=== PATIENT | female | born 1935 | race Two or more races ===

== ENCOUNTER 2025-01-14 14:42 | Observation (INO) | payer OTHER, MEDICAID, SELFPAY ==
[2025-01-14] VITALS (8 sets, daily range): BP systolic 128–174; BP diastolic 55–76; PULSE 65–88; RESP 17–25; TEMP 36.6–37.1; O2SAT 97–100; BMI 17.9
--- NOTE | 2025-01-14 15:02 | PD.EDRME ---
Rapid Medical Screening Exam RME Arrival date/time: 01/14/25 14:42 89-year-old female presents to the emergency department today with daughter who reports patient had outpatient labs yesterday reports that labs were abnormal and was told to come to the ER for further evaluation Chief Complaint: Weakness Vital signs: Vital Signs Temperature 98.7 F 01/14/25 15:01 Pulse Rate 76 01/14/25 15:01 Respiratory Rate 18 01/14/25 15:01 Blood Pressure 158/55 H 01/14/25 15:01 Pulse Oximetry (%) 98 01/14/25 15:01 Oxygen Delivery Method Room Air 01/14/25 15:01
[2025-01-14 15:45] LABS: Basophils # (Auto) 0.0 Thou/mm3 (0.0-0.2); Basophils % (Auto) 0 % (0-2.5); Eosinophils # (Auto) 0.1 Thou/mm3 (0.0-0.5); Eosinophils % (Auto) 1 % (0-10); Hematocrit 30.6 % (36.0-46.0); Hemoglobin 9.9 g/dL (12.0-16.0); Immature Granulocytes Auto 0.04 Thou/mm3 (0.00-0.00); Lymphocytes # (Auto) 1.7 Thou/mm3 (1.0-4.8); Lymphocytes % (Auto) 18 % (10-50); Mean Corpuscular HGB Conc 32.4 g/dl (31.0-37.0); Mean Corpuscular Hemoglobin 26.5 pg (25.0-35.0); Mean Corpuscular Volume 82 fL (80-100); Monocytes # (Auto) 0.5 Thou/mm3 (0.0-0.8); Monocytes % (Auto) 5 % (0-12); Neutrophils # (Auto) 7.0 Thou/mm3 (1.8-7.7); Neutrophils % (Auto) 76 % (37-80); Nucleated Red Blood Cell # 0.00 Thou/mm3 (0.00-0.00); Nucleated Red Blood Cell % 0 /100 WBC (0); Platelet Count 247 Thou/mm3 (140-440); RDW Standard Deviation 40.1 fL (36.4-46.3); Red Blood Count 3.74 Miln/mm3 (4.00-5.20); White Blood Count 9.3 Thou/mm3 (3.6-11.0)
[2025-01-14 16:16] LABS: Alanine Aminotransferase 13 U/L (10-49); Albumin, Serum 4.0 gm/dL (3.4-4.8); Albumin/Globulin Ratio 1.9 (1.2-2.2); Alkaline Phosphatase 77 U/L (46-116); Anion Gap 14 (7-16); Aspartate Amino Transferase 21 U/L (0-34); BUN/Creatinine Ratio 11 Ratio (12-20); Bilirubin,Total 0.3 mg/dL (0.3-1.2); Blood Urea Nitrogen 9 mg/dL (9-23); Carbon Dioxide 27.0 mMol/L (20.0-31.0); Chloride 98 mMol/L (98-107); Creatinine (Component) 0.8 mg/dL (0.6-1.3); Estimated Creatinine Clearance 35.6 mL/min (>60); Globulin 2.1 gm/dL (2.3-3.5); Glucose 137 mg/dL (74-106); Osmolality,Calculated 278 (275-295); Potassium 3.0 mMol/L (3.4-5.1); Sodium 139 mMol/L (136-145); Total Protein 6.1 gm/dL (5.7-8.2); eGFR > 60 See Note
[2025-01-14 16:19] LABS: Calcium 6.7 mg/dL (8.3-10.6)
[2025-01-14 16:20] LABS: Calcium (Corrected) 6.7 mg/dL (8.5-10.1); Magnesium 0.6 mg/dL (1.6-2.6)
[2025-01-14 17:19] LABS: Free T4 (Free Thyroxine) 1.21 ng/dL (0.89-1.76); Thyroid Stimulating Hormone 2.27 uIU/mL (0.55-4.78)
[2025-01-14 19:55] LABS: Collection Type, Urine Clean Catch
[2025-01-14 20:14] LABS: Bacteria,Urine Rare; Bilirubin,Urine Negative (Negative); Blood,Urine Negative (Negative); Clarity,Urine Clear (Clear/Hazy); Color,Urine Lt-Yellow (Lt Yel-Yel); Culture Indicated,Urine Yes; Glucose, Urine Negative (Negative); Ketones,Urine Negative (Negative); Leukocyte Esterase,Urine Positive (Negative); Nitrite,Urine Negative (Negative); PH,Urine 6.5 (5.0-7.0); Protein,Urine Negative (Neg - Trace); RBC,Urine 1 /hpf (0-3); Specific Gravity,Urine 1.006 (1.001-1.035); Squamous Epithelial Cell,Urine 1 /hpf (0-5); Urobilinogen,Urine Negative mg/dL (0.0-1.0); WBC,Urine 15 /hpf (0-5)
--- NOTE | 2025-01-14 20:38 | EKG_ITS ---
[facility] Test Date: 2025-01-14 Pat Name: ERUM MCNALLY Department: Room: - Gender: Female Ivf Embryologist: : 1935 Requested By: Jaime Marin Order Number: [id number] Reading MD: Jaime Marin Measurements Intervals [place] Rate: 77 P: 20 MD: 150 QRS: 74 QRSD: 149 T: 3 QT: 449 QTc: 509 Interpretive Statements SINUS RHYTHM INDETERMINATE AXIS RIGHT BUNDLE BRANCH BLOCK [120+ ms QRS DURATION, UPRIGHT V1, 40+ ms S IN I/aVL/V4/V5/V6] Compared to ECG 05/28/2023 20:03:31 No significant changes /store/S0/[id number]/ecg/[id number].pdf
--- NOTE | 2025-01-14 20:47 | PD.EDWEAK ---
ED Weakness RME/HPI General Chief complaint: Weakness Stated complaint: WEAKNESS, LOW APPETITE, LOW k AND CALCIUM Time Seen by Provider: 01/14/25 20:37 Arrival date/time: 01/14/25 14:42 RME / HPI RME / HPI Narrative: 89-year-old female with significant history of diabetes mellitus presents to the emergency department today with daughter due to abnormal lab results. Patient is having worsening generalized body weakness, for the last 1 to 2 months, getting worse for the last 1-1/2 weeks. Went to PCP yesterday for routine blood draw. And was advised to come to the emergency room due to abnormal lab results. Denies any chest pain denies any vomiting denies any diarrhea. Denies any complaints no medication was taken prior to ER visit. Related Data Home Medications ?Medication ?Instructions ?Recorded ?Confirmed metformin 500 mg tablet 500 mg PO BID 12/18/18 01/15/25 meloxicam 7.5 mg tablet 7.5 mg PO QDAY 01/16/21 01/15/25 ascorbic acid (vitamin C) 500 mg 500 mg PO QDAY 07/30/23 01/15/25 tablet (Vitamin C) atorvastatin 20 mg tablet 20 mg PO QDAY 07/30/23 01/15/25 cholecalciferol (vitamin D3) 125 125 mcg PO QDAY 07/30/23 01/15/25 mcg (5,000 unit) tablet (Vitamin D3) losartan 50 mg-hydrochlorothiazide 1 tab PO QDAY 07/30/23 01/15/25 12.5 mg tablet cdfpsejgihtt-pnlwsgcb-qsmyfx tablet 1 tab PO QDAY 07/30/23 01/15/25 omeprazole 40 mg capsule,delayed 40 mg PO QDAY 07/30/23 01/15/25 release oxybutynin chloride 5 mg tablet 5 mg PO QDAY 07/30/23 01/15/25 potassium chloride 10 mEq 10 meq PO BID 07/30/23 01/15/25 capsule,extended release Previous Rx's ?Medication ?Instructions ?Recorded clopidogrel 75 mg tablet (Plavix) 75 mg PO QDAY #14 tabs 06/28/20 meloxicam 7.5 mg tablet 7.5 mg PO QDAY #4 tabs 12/15/23 Allergies Allergy/AdvReac Type Severity Reaction Status Date / Time Penicillins Allergy Intermediate Rash Verified 01/14/25 14:43 Review of Systems Review of Systems Narrative Review of Systems: Review of system reviewed and within normal limits except mentioned in HPI ED Exam Narrative Physical exam: VITAL SIGNS: Reviewed. GENERAL APPEARANCE: Alert and interactive, follows commands, no acute distress, HEAD AND FACE: Non-traumatic. ENT: PERRL, pink conjunctivitis, eyelid no trauma, Mucous membrane moist. NECK: Supple, nontender, no nuchal rigidity. CHEST: No tenderness, no crepitus, no paradoxical movement, no retractions. LUNGS: Clear, well ventilated, symmetric, no rales, no wheezing, no ronchi, no stridor, good breath sounds bilaterally. HEART: Regular rate, regular rhythm, no murmur, no gallops. ABDOMEN: Soft, positive bowel sounds, nondistended, no guarding, nontender, no rebound, no masses, RECTAL: Deferred. GENITAL: Deferred. NEUROLOGICAL: Gross motor function intact sensory function intact, Appropriate for age. MUSCULOSKELETAL: low back nontender, full range of motion. EXTREMITIES: Nontender, full range of motion. SKIN: Color pink, dry, no rash, no lacerations, no abrasions, no contusions. LYMPHATICS: Deferred. Course Quality Measures none Orders Category Date Time Status COVID-19 Screening Questionnaire NOW Care 01/14/25 23:20 Active Decision to Admit X1 Care 01/14/25 23:20 Completed EKG (ED ONLY) *Do not use* NOW Care 01/14/25 20:38 Completed EKG (ED Only) Stat Exams 01/14/25 20:38 Draft CBC Stat Lab 01/14/25 15:33 Completed Comprehensive Metabolic Panel Stat Lab 01/14/25 15:33 Completed Free T4 (Free Thyroxine) Stat Lab 01/14/25 15:33 Completed Mag [Magnesium] Stat Lab 01/14/25 15:33 Completed Thyroid Stimulating Hormone Stat Lab 01/14/25 15:33 Completed UA, C/S IF [Urinalysis, C/S if Indicated] Stat Lab 01/14/25 19:40 Completed Urine Culture Stat Lab 01/14/25 19:40 Received Calcium Gluconate 10% Inj Med 01/14/25 20:43 Discontinued 1 gm IV X1 ONE Magnesium Sulfate 2 GM Ivpb [Magnesium Sulfate Ivpb] Med 01/14/25 20:54 Discontinued 2 gm in 50 ml IV X1 Magnesium Sulfate 4 GM Ivpb [Magnesium Sulfate Ivpb] Med 01/14/25 20:44 Discontinued 4 gm in 50 ml IV X1 Potassium Chloride [K-Dur] Med 01/14/25 20:43 Discontinued 40 meq PO X1 ONE Vital Signs Vital signs: Vital Signs Temperature 98.7 F 01/14/25 15:01 Pulse Rate 76 01/14/25 15:01 Respiratory Rate 18 01/14/25 15:01 Blood Pressure 158/55 H 01/14/25 15:01 Pulse Oximetry (%) 98 01/14/25 15:01 Oxygen Delivery Method Room Air 01/14/25 15:01 Weakness MDM Narrative MDM Narrative:: 89-year-old female with significant history of diabetes mellitus presents to the emergency department today with daughter due to abnormal lab results. Patient is having worsening generalized body weakness, for the last 1 to 2 months, getting worse for the last 1-1/2 weeks. Went to PCP yesterday for routine blood draw. And was advised to come to the emergency room due to abnormal lab results. Denies any chest pain denies any vomiting denies any diarrhea. Denies any complaints no medication was taken prior to ER visit. Patient's magnesium was noted to be 0.6, potassium of 3.0, calcium is also 6.6. Patient received replacement for magnesium and potassium and calcium. Spoke with hospitalist, who admitted the patient. Patient data External records reviewed:: None Clinical information provided by:: patient Social determinants that could affect healthcare access:: none Patient has the following chronic illnesses:: Diabetes mellitus How is presenting disease/condition affected by chronic disease/condition?: exacerbated by Evaluation data The following diagnostics were reviewed and interpreted by me:: lab results, radiology exam(s) and EKG tracing(s) Lab and/or radiology exams considered but not ordered:: None Interpretation Summary: EKG as interpreted by me showed normal sinus rhythm, ventricular rate of 76 bpm, no ST segment ovation depression noted. Medications / Prescriptions Medications or Prescriptions considered but not ordered:: None Medication administrations:: Medication Administration History Ascorbic Acid (Ascorbic Acid 250 Mg Tablet) 500 mg PO QDAY [facility] Stop: 02/14/25 08:59 Last Admin: 01/15/25 09:36 Dose: 500 mg Documented By: MA Atorvastatin Calcium (Atorvastatin Calcium 20 Mg Tablet) 40 mg PO HS [facility] Stop: 02/14/25 20:59 Last Admin: 01/15/25 20:46 Dose: 40 mg Documented By: WILLIAM Clopidogrel Bisulfate (Clopidogrel Bisulfate 75 Mg Tablet) 75 mg PO QDAY JL Stop: 02/14/25 08:59 Last Admin: 01/15/25 09:37 Dose: 75 mg Documented By: MA Diphenhydramine HCl (Diphenhydramine Inj 50 Mg/Ml Vial) 25 mg IVP Q4HR PRN PRN Reason: Itching and nausea Stop: 02/13/25 23:46 Heparin Sodium (Porcine) (Heparin Sod Inj 5000 Unit/Ml Vial) 5,000 unit SC BID JL Stop: 01/29/25 08:59 Last Admin: 01/15/25 20:46 Dose: 5,000 unit Documented By: WILLIAM Co-signed By: TIFFANY Admin: 01/15/25 09:37 Dose: 5,000 unit Documented By: MA Co-signed By: PAOLO Hydrochlorothiazide (Hydrochlorothiazide 12.5 Mg Capsule) 12.5 mg PO QDAY JL Stop: 02/14/25 08:59 Last Admin: 01/15/25 09:36 Dose: 12.5 mg Documented By: MA Losartan Potassium (Losartan Potassium 25 Mg Tablet) 50 mg PO QDAY JL Stop: 02/14/25 08:59 Last Admin: 01/15/25 09:37 Dose: 50 mg Documented By: MA Oxybutynin Chloride (Oxybutynin Chlor 5 Mg Tablet) 5 mg PO QDAY JL Stop: 02/14/25 08:59 Last Admin: 01/15/25 09:36 Dose: 5 mg Documented By: MA Pantoprazole Sodium (Pantoprazole 40 Mg Tablet) 40 mg PO QDAY JL Stop: 02/14/25 08:59 Last Admin: 01/15/25 09:37 Dose: 40 mg Documented By: MA Discontinued Medications Atorvastatin Calcium (Atorvastatin Calcium 20 Mg Tablet) 40 mg PO HS JL Stop: 02/14/25 20:59 Atorvastatin Calcium (Atorvastatin Calcium 20 Mg Tablet) 20 mg PO HS JL Stop: 02/14/25 20:59 Calcium Gluconate (Calcium Gluconate 10% Inj 1 Gm/10 Ml Vial) 1 gm IV X1 ONE Stop: 01/14/25 20:44 Last Admin: 01/14/25 21:05 Dose: 1 gm Documented By: JORGE Calcium Gluconate (Calcium Gluconate 10% Inj 1 Gm/10 Ml Vial) 1 gm IV X1 ONE Stop: 01/15/25 02:31 Last Admin: 01/15/25 04:31 Dose: 1 gm Documented By: JOHNNY Clopidogrel Bisulfate (Clopidogrel Bisulfate 75 Mg Tablet) 75 mg PO QDAY JL Stop: 02/14/25 08:59 Dextrose (Dextrose 50%-Water Inj 50 Ml Syringe) 25 ml IV Q15MIN PRN PRN Reason: BG 50-70 responsive npo pt Stop: 02/13/25 23:51 Dextrose (Dextrose 50%-Water Inj 50 Ml Syringe) 50 ml IV Q15MIN PRN PRN Reason: BG <50 OR BG <70 & pt unresponsive Stop: 02/13/25 23:51 Glucagon (Glucagon Inj 1 Mg Vial) 1 mg IM Q15MIN PRN PRN Reason: BG <70, and no IV access Magnesium Sulfate (Magnesium Sulfate Ivpb) 4 gm in 50 mls @ 12.5 mls/hr IV X1 ONE Stop: 01/15/25 00:43 Last Infusion: 01/15/25 01:05 Dose: Infused Documented By: Admin: 01/14/25 21:05 Dose: 12.5 mls/hr Documented By: JORGE Magnesium Sulfate (Magnesium Sulfate Ivpb) 2 gm in 50 mls @ 25 mls/hr IV X1 ONE Stop: 01/14/25 22:53 Last Infusion: 01/15/25 03:11 Dose: Infused Documented By: Admin: 01/15/25 01:14 Dose: 25 mls/hr Documented By: JORGE Dextrose/Sodium Chloride (D5-Ns) 500 mls @ 75 mls/hr IV .[id number] JL Stop: 01/15/25 06:24 Dextrose/Sodium Chloride (D5-Ns) 1,000 mls @ 75 mls/hr IV .[id number] JL Stop: 01/15/25 17:36 Last Admin: 01/15/25 20:58 Dose: Not Given Documented By: WILLIAM Non-Admin Reason: Wrong Time Sodium Chloride (Ns) 250 mls @ 999 mls/hr IV .Q16M ONE Stop: 01/15/25 10:38 Last Admin: 01/15/25 12:51 Dose: 999 mls/hr Documented By: CHAOV Insulin Human Lispro (Insulin Lispro (Admelog) 1 Unit/0.01 Ml Unit) 0 unit SC ACHS JL; Protocol Stop: 02/14/25 07:29 Last Admin: 01/15/25 07:27 Dose: 1 unit Documented By: MA Co-signed By: PAOLO Non-Formulary Medication (Losartan-Hydrochlorothiazide) 1 tab PO QDAY JL Stop: 02/14/25 08:59 Pantoprazole Sodium (Pantoprazole 40 Mg Tablet) 40 mg PO BID JL; Protocol Stop: 02/14/25 08:59 Potassium Chloride (Potassium Chloride 20 Meq Tabcr) 40 meq PO X1 ONE Stop: 01/14/25 20:44 Last Admin: 01/14/25 21:05 Dose: 40 meq Documented By: JORGE Potassium Chloride (Potassium Chloride 20 Meq Tabcr) 40 meq PO X1 ONE Stop: 01/15/25 02:31 Last Admin: 01/15/25 04:31 Dose: 40 meq Documented By: JOHNNY Potassium Chloride (Potassium Chloride 20 Meq Tabcr) 20 meq PO X1 ONE Stop: 01/15/25 08:31 Last Admin: 01/15/25 09:40 Dose: 20 meq Documented By: CHAVO Vitamin D (Cholecalciferol (Vitamin D3) 1,000 Iu Tablet) 5,000 iu PO QDAY [facility] Stop: 02/14/25 08:59 Potassium replacement, magnesium replacement, and calcium replacement Consultations Consultation(s) initiated? (list below): No Diagnosis Weakness Differential Diagnosis: dehydration and other (Hypomagnesemia, hypocalcemia, hypokalemia) Most likely diagnosis given after review of the tests above:: Hypokalemia , hypocalcemia, hypomagnesemia Admission Indicated Admission indicated?: indicated Admission Request Was there a request for admission?: Yes Admission Attestation Admission request attestation: Discussed case with [Dr Elliott ] from Hospitalist service regarding admission. Discussed patients ED course, exam findings, labs, and radiology results. The Hospitalist [agrees to accept the patient for admission. Disposition Plan Disposition Plan: Admit Discharge Plan Plan Patient Disposition: Admit Acute Care w/in Hospital Problem List Clinical Impression: Hypomagnesemia, Weakness generalized
[2025-01-14] MEDS: CALCIUM GLUCONATE 10% INJ 1 GM/10 ML VIAL IV (21:05)
[2025-01-14] MEDS: Magnesium Sulfate 4 GM Ivpb 4 GM/50 ML BAG IV (21:05)
[2025-01-15] VITALS (20 sets, daily range): BP systolic 112–159; BP diastolic 46–99; PULSE 64–79; RESP 17–20; TEMP 36.2–37.2; O2SAT 93–100; BMI 17.9; BMI 19.3
--- NOTE | 2025-01-15 00:14 | PD.RESHP ---
Documentation for date of: 01/15/25 HPI History of Present Illness History of present illness: Patient is a 89-year-old female past medical significant for multiple CVA/TIA, hypertension, diabetes mellitus presented to the [facility] ED on 01/14/2025 with chief complaint of weakness. The patient is accompanied by her daughter, Latonia. The patient was referred by her primary care provider for further evaluation after abnormal lab results were found during a routine checkup. The patient denies any history of thyroid problems, cancer, or trauma. Over the past two weeks, the patient reports feeling more fatigued than usual state of generalized weakness. She also notes tingling and itchiness in both hands. Additionally, she has experienced unintentional weight loss of approximately 34 pounds over the past 2-3 months. The patient describes her diet as generally varied, with no specific food restrictions, but she has had a decreased appetite over the last few months. She denies any difficulty chewing or swallowing. Per the daughter, the patient has become increasingly forgetful, and this may be contributing to her reduced appetite. The daughter mentions a recent episode where the patient was found outside wearing only panties and appeared confused about her surroundings, not recognizing why she was outside. The patient has also reported intermittent headaches generalized weakness that resolved when she eats and rest. The patient denies symptoms such as shortness of breath, chest pain, abdominal pain, diarrhea, constipation, or urinary issues (no frequency or urgency). The patient denies any past history of thyroid problems, cancer, or trauma. ED Course: -Initial vitals were 158/55, pulse 76, respiratory 18, temp 98.7, O2 sat 98% on room -Labs significant for WBC 11.9, hemoglobin 10.6, hematocrit 32.1, potassium 3, calcium 6.7, magnesium 0.6 -Imaging included EKG shows sinus rhythm -In the ED, patient was given Mag 4 mg and 2mg IV x 1, potassium chloride 40 mEq x 1, calcium gluconate 1 mg x 1 -Patient was admitted for electrolyte derangements and weakness evaluation and management Review of Systems Review of systems otherwise negative except what is mentioned above. 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 Uses walker for ambulate Current Medications: Check med Allergies: Penicillin -rash Exam Vital Signs Temp Pulse Resp BP Pulse Ox O2 Del Method 97.8 F 81 19 128/65 97 Room Air 01/14/25 23:07 01/14/25 23:07 01/14/25 23:07 01/14/25 23:07 01/14/25 23:07 01/14/25 23:07 Narrative Exam General: Alert, no acute distress.Conversational and non-toxic appearing. Skin: Warm, dry, intact. No rash or ecchymoses. Head: Normocephalic, atraumatic. Eye: Normal conjunctiva, PERRL. Throat: Oral mucosa moist. No obvious lesions in oropharynx. Cardiovascular: Regular rate and rhythm, no murmur, +S1/S2. Respiratory: Lungs are clear to auscultation, respirations unlabored, no crackles, no wheezing. Gastrointestinal: Soft, nontender, non-distended. No guarding or rebound tenderness. Extremities: No edema, no cyanosis, no clubbing. Neuro: [place] sign negative alert and oriented x3.No focal deficits observed. Conversant, moving all extremities. No overt cerebellar signs/incoordination. Psychiatric: Cooperative, appropriate affect Results: Labs 01/15/25 00:10 01/16/25 05:14 Labs: Short CBC 01/14/25 Range/Units 15:33 WBC 9.3 (3.6-11.0) Thou/mm3 Hgb 9.9 L (12.0-16.0) g/dL Hct 30.6 L (36.0-46.0) % Plt Count 247 (140-440) Thou/mm3 BMP 01/14/25 15:33 Sodium 139 Potassium 3.0 L Chloride 98 Carbon Dioxide 27.0 BUN 9 Creatinine 0.8 Glucose 137 H Calcium 6.7 L* Liver Function 01/14/25 Range/Units 15:33 Total Bilirubin 0.3 (0.3-1.2) mg/dL AST 21 (0-34) U/L ALT 13 (10-49) U/L Alkaline Phosphatase 77 (46-116) U/L Albumin 4.0 (3.4-4.8) gm/dL Urine 01/14/25 Range/Units 19:40 Urine Color Lt-Yellow (Lt Yel-Yel) Urine Clarity Clear (Clear/Hazy) Urine pH 6.5 (5.0-7.0) Ur Specific [place] 1.006 (1.001-1.035) Urine Protein Negative (Neg - Trace) Urine Glucose (UA) Negative (Negative) Quality Measures Quality Measures VTE prophylaxis Advance care planning discussed with:: patient Medications Home Medications and Allergies Home Medications ?Medication ?Instructions ?Recorded ?Confirmed ?Type ascorbic acid (vitamin C) 500 mg 500 mg PO QDAY 07/30/23 01/15/25 History tablet (Vitamin C) atorvastatin 20 mg tablet 20 mg PO QDAY 07/30/23 01/15/25 History cholecalciferol (vitamin D3) 125 125 mcg PO QDAY 07/30/23 01/15/25 History mcg (5,000 unit) tablet (Vitamin D3) losartan 50 mg-hydrochlorothiazide 1 tab PO QDAY 07/30/23 01/15/25 History 12.5 mg tablet tqmhuczpllyc-bbyriysu-latwjq tablet 1 tab PO QDAY 07/30/23 01/15/25 History omeprazole 40 mg capsule,delayed 40 mg PO QDAY 07/30/23 01/15/25 History release oxybutynin chloride 5 mg tablet 5 mg PO QDAY 07/30/23 01/15/25 History Allergies Allergy/AdvReac Type Severity Reaction Status Date / Time Penicillins Allergy Intermediate Rash Verified 01/14/25 14:43 Visit Medications Dextrose (Dextrose 50%-Water Inj 50 Ml Syringe) 25 ml IV Q15MIN PRN PRN Reason: BG 50-70 responsive npo pt Stop: 02/13/25 23:51 Dextrose (Dextrose 50%-Water Inj 50 Ml Syringe) 50 ml IV Q15MIN PRN PRN Reason: BG <50 OR BG <70 & pt unresponsive Stop: 02/13/25 23:51 Diphenhydramine HCl (Diphenhydramine Inj 50 Mg/Ml Vial) 25 mg IVP Q4HR PRN PRN Reason: Itching and nausea Stop: 02/13/25 23:46 Glucagon (Glucagon Inj 1 Mg Vial) 1 mg IM Q15MIN PRN PRN Reason: BG <70, and no IV access Magnesium Sulfate (Magnesium Sulfate Ivpb) 4 gm in 50 mls @ 12.5 mls/hr IV X1 ONE Stop: 01/15/25 00:43 Last Admin: 01/14/25 21:05 Dose: 12.5 mls/hr Dextrose/Sodium Chloride (D5-Ns) 500 mls @ 75 mls/hr IV .Q6H40M [facility] Stop: 01/15/25 06:24 Insulin Human Lispro (Insulin Lispro (Admelog) 1 Unit/0.01 Ml Unit) 0 unit SC [facility]; Protocol Stop: 02/14/25 07:29 Discontinued Medications Calcium Gluconate (Calcium Gluconate 10% Inj 1 Gm/10 Ml Vial) 1 gm IV X1 ONE Stop: 01/14/25 20:44 Last Admin: 01/14/25 21:05 Dose: 1 gm Magnesium Sulfate (Magnesium Sulfate Ivpb) 2 gm in 50 mls @ 25 mls/hr IV X1 ONE Stop: 01/14/25 22:53 Potassium Chloride (Potassium Chloride 20 Meq Tabcr) 40 meq PO X1 ONE Stop: 01/14/25 20:44 Last Admin: 01/14/25 21:05 Dose: 40 meq Assessment & Plan Plan Patient is a 89-year-old female past medical significant for multiple CVA/TIA, hypertension, diabetes mellitus presented to the [facility] ED on 01/14/2025 with chief complaint of weakness. Admitted for evaluation and management on electrolyte derangements. #QTc prolongation #Electrolyte abnormalities #Hypocalcemia #Hypomagnesia #Hypokalemia Patient presented with symptoms generalized weakness, fatigue bilateral and tingling and itching. Lab was significant for Ca 6.7, Mg 0.6, K 3.0 each electrolyte were repleted except for hypocalcemia DDx hypocalcemia: Primary hypoparathyroidism most likely vs vitamin D deficient vs CKD vs malnutrition/poor dietary. Patient for hypoparathyroidism as patient has previous history of magnesium deficiency which can impair PTH secretion, also patient has low calcium PTH was 84.9, which is low, per physiology low calcium supposed to induce more PTH secretion. Less likely due to CKD as patient kidney function and phosphorus is normal. Unsure about vitamin D level as patient takes supplement -Replete electrolytes as needed -Vitamin B1 ordered, pending -Vitamin D25 hydroxy ordered, pending -Consider further workup for hypocalcemia -Repeat ECG after electrolyte correction #Prior CVA/TIA Patient reported prior history of 3 CVAs, with no residual deficit - Resume atorvastatin 40 mg daily - Resume Plavix 75 mg daily #Ayc-zqhdtwu-shrylfnli type 2 diabetes mellitus Admission glucose 128, last A1c was 7.6 -Started insulin sliding -Glucose check ACHS #Hypertension -Continue home medications after medication reconciliation #Chronic normocytic anemia Hgb around her baseline. Continue to monitor. F/U outpatient with pcp. #Pyuria No symptoms of UTI Treat if symptoms develop Hospital management: Lines: peripheral IV Diet: Diabetic carbohydrate consistent DVT: Heparin SC [facility] evaluation CODE STATUS: Full code Patient seen and assessed under supervision of attending physician Dr.Alhalaibeh Juana Hermosillo MD PGY-1, Internal Medicine Please note: this document was transcribed using voice recognition technology; minor inaccuracies may be present. Attending Provider Attestation/Addendum After examination of the patient and review of the clinical data I feel that this patient needs admission to the hospital for further treatment/evaluation. Plan of care discussed with patient and is in agreement. I Rosa Jarrett MD, attest that I was physically present for valdivia portions of evaluation, and examined patient, labs and imagings and plan of care were discussed with IM residents team, and I agree with the findings and plans documented above.
[2025-01-15 00:28] LABS: Basophils # (Auto) 0.0 Thou/mm3 (0.0-0.2); Basophils % (Auto) 0 % (0-2.5); Eosinophils # (Auto) 0.0 Thou/mm3 (0.0-0.5); Eosinophils % (Auto) 0 % (0-10); Hematocrit 32.1 % (36.0-46.0); Hemoglobin 10.6 g/dL (12.0-16.0); Immature Granulocytes Auto 0.04 Thou/mm3 (0.00-0.00); Lymphocytes # (Auto) 1.2 Thou/mm3 (1.0-4.8); Lymphocytes % (Auto) 11 % (10-50); Mean Corpuscular HGB Conc 33.0 g/dl (31.0-37.0); Mean Corpuscular Hemoglobin 27.0 pg (25.0-35.0); Mean Corpuscular Volume 82 fL (80-100); Monocytes # (Auto) 0.5 Thou/mm3 (0.0-0.8); Monocytes % (Auto) 5 % (0-12); Neutrophils # (Auto) 9.3 Thou/mm3 (1.8-7.7); Neutrophils % (Auto) 84 % (37-80); Nucleated Red Blood Cell # 0.00 Thou/mm3 (0.00-0.00); Nucleated Red Blood Cell % 0 /100 WBC (0); Platelet Count 263 Thou/mm3 (140-440); RDW Standard Deviation 39.6 fL (36.4-46.3); Red Blood Count 3.93 Miln/mm3 (4.00-5.20); White Blood Count 11.1 Thou/mm3 (3.6-11.0)
[2025-01-15 00:42] LABS: Parathyroid Hormone Intact 84.9 pg/ml (18.5-88.0)
[2025-01-15] MEDS: Magnesium Sulfate 2 GM Ivpb 2 GM/50 ML BAG IV (01:14)
[2025-01-15 01:17] LABS: Folate 9.06 ng/mL (>5.38)
[2025-01-15 02:22] LABS: Albumin, Serum 4.2 gm/dL (3.4-4.8); Anion Gap 17 (7-16); BUN/Creatinine Ratio 14 Ratio (12-20); Blood Urea Nitrogen 10 mg/dL (9-23); Calcium 7.8 mg/dL (8.3-10.6); Calcium (Corrected) 7.8 mg/dL (8.5-10.1); Carbon Dioxide 26.3 mMol/L (20.0-31.0); Chloride 100 mMol/L (98-107); Creatinine (Component) 0.7 mg/dL (0.6-1.3); Estimated Creatinine Clearance 40.7 mL/min (>60); Glucose 128 mg/dL (74-106); Magnesium 2.0 mg/dL (1.6-2.6); Osmolality,Calculated 285 (275-295); Phosphorous 3.9 mg/dL (2.4-5.1); Potassium 3.0 mMol/L (3.4-5.1); Sodium 143 mMol/L (136-145); eGFR > 60 See Note
[2025-01-15] MEDS: CALCIUM GLUCONATE 10% INJ 1 GM/10 ML VIAL IV (04:31)
[2025-01-15 06:02] LABS: Lactate (Lactic Acid) 1.4 mMol/L (0.4-2.0)
[2025-01-15 06:35] LABS: Vitamin D 25 Hydroxy Total 50.0 ng/mL (7.3-40.2)
[2025-01-15 06:47] LABS: Alanine Aminotransferase 13 U/L (10-49); Albumin, Serum 4.5 gm/dL (3.4-4.8); Albumin/Globulin Ratio 1.9 (1.2-2.2); Alkaline Phosphatase 90 U/L (46-116); Anion Gap 15 (7-16); Aspartate Amino Transferase 20 U/L (0-34); BUN/Creatinine Ratio 8 Ratio (12-20); Bilirubin,Total 0.4 mg/dL (0.3-1.2); Blood Urea Nitrogen 6 mg/dL (9-23); Calcium 8.9 mg/dL (8.3-10.6); Calcium (Corrected) 8.9 mg/dL (8.5-10.1); Carbon Dioxide 27.5 mMol/L (20.0-31.0); Chloride 103 mMol/L (98-107); Creatinine (Component) 0.8 mg/dL (0.6-1.3); Estimated Creatinine Clearance 35.6 mL/min (>60); Globulin 2.4 gm/dL (2.3-3.5); Glucose 163 mg/dL (74-106); Magnesium 3.1 mg/dL (1.6-2.6); Osmolality,Calculated 290 (275-295); Phosphorous 3.5 mg/dL (2.4-5.1); Potassium 3.5 mMol/L (3.4-5.1); Sodium 145 mMol/L (136-145); Total Protein 6.9 gm/dL (5.7-8.2); eGFR > 60 See Note
[2025-01-15] MEDS: INSULIN LISPRO (AdmeLOG) 1 UNIT/0.01 ML UNIT SC (07:27)
--- NOTE | 2025-01-15 09:13 | PC.SS ---
Hermelinda Rodriguez is a 89 year old female admitted for Weakness. SS made contact with the patient in the attempt to complete initial. Role and reason for the contact was explained to the patient. Demographic information was verified with the patient. Patient was able to verify her home address, phone number and contact information for her , Montrell Rodriguez. Patient reports that she lives at home with her who she reports as her primary care person [phone]. Patient denies having an advance directive in place. SS inquired about the patient being able to perform her own ADL?s at home. Patient reports that she is independent with her ADL?s. Patient reports she does utilize a Rollator walker to assist with ambulation. At this time patient reports that she has no other needs. Patient reports that her will be able to transport her home upon discharge. PCP: Raimundo Champion Discharge plan: Home Next of kin: , Montrell Rodriguez
[2025-01-15] MEDS: OXYBUTYNIN CHLOR 5 MG TABLET PO (09:36)
[2025-01-15] MEDS: ASCORBIC ACID 250 MG TABLET 500 MG PO (09:36)
[2025-01-15] MEDS: PANTOPRAZOLE 40 MG TABLET PO (09:37)
[2025-01-15] MEDS: HEPARIN SOD INJ 5000 UNIT/ML VIAL SC ×2 (09:37→20:46)
[2025-01-15] MEDS: CLOPIDOGREL BISULFATE 75 MG TABLET PO (09:37)
[2025-01-15] MEDS: LOSARTAN POTASSIUM 25 MG TABLET 50 MG PO (09:37)
[2025-01-15 09:38] LABS: Glucose Estimated Average 143 mg/dL (80-131); Hemoglobin A1C 6.6 % Hgb (4.8-6.0)
[2025-01-15 09:59] LABS: Cardiac Risk Estimate 2.4 RATIO (3.7-5.6); Cholesterol 94 mg/dL (132-200); HDL Cholesterol 40 mg/dL (40-60); LDL Cholesterol,Calculated 38 mg/dL (0-130); Triglycerides 80 mg/dL (30-150)
--- NOTE | 2025-01-15 10:21 | XR_ITS ---
Examination: CT chest with intravenous contrast CT abdomen with intravenous contrast CT pelvis with intravenous contrast CT chest without intravenous contrast CT abdomen without intravenous contrast CT pelvis without intravenous contrast 2-D coronal and sagittal reconstructions Time of exam: January 15, 2025, 1508 hours, comparison April 05, 2023 INDICATIONS: 20 pound weight loss over the last 4 months CTDI: vol (mGy) : 10 DLP: (mGycm): 645 Technique: Multiple axial images of the chest, abdomen and pelvis with intravenous contrast, 3.0 mm slice thickness. Images obtained post intravenous injection Isovue 370 60 cc. 2-D sagittal and coronal reconstructions. Low dose protocols were performed. One or more of the following dose reduction techniques were used; automated exposure control, adjustment of the mA and/or KV according to patient size, use of iterative reconstruction technique. Findings: 10 mm right thyroid nodule 12 mm calcified left thyroid nodule No thoracic aortic aneurysm dilatation or dissection No pulmonary artery emboli on this non-CTA study Mild enlargement cardiac contour No paratracheal tracheobronchial or bronchopulmonary adenopathy. 4 mm pulmonary nodule right upper lobe image 168 4 mm pulmonary nodule left upper lobe image 112 4 mm pulmonary nodule right lower lobe image 113 4 mm pulmonary nodule right lower lobe image 163 4 mm pulmonary nodule right lower lobe image 164 4 mm pulmonary nodule left lower lobe image 290 No pneumonia or pulmonary edema Minimal pericardial effusion No focal liver or splenic lesions Cholelithiasis No pancreatic or adrenal mass 2 mm nonobstructing left renal calculus 2 mm nonobstructing right renal calculus Renal arterial calcifications Aortic calcification no aneurysmal dilatation Colonic diverticulosis no diverticulitis No bladder mass or bladder calculi No pericecal inflammatory change No pelvic mass Prominent osteopenia with moderate to advanced diffuse lumbar degenerative disc disease Moderate narrowing hip joints IMPRESSION: Thyroid nodules as above, recommend dedicated thyroid sonography follow-up Additional subcentimeter bilateral pulmonary nodules compared with April 05, 2023, suggest continued 6 month follow-up CT chest without contrast to exclude early pulmonary nodular metastatic disease Cholelithiasis Bilateral nonobstructing renal calculi No hydronephrosis or ureteral calculi No CT findings of appendicitis or bowel obstruction
--- NOTE | 2025-01-15 10:37 | ESPR_ITS ---
Documentation for date of: 01/15/25 Subjective Subjective Interval history: Patient was admitted overnight. Patient reports decreased appetite over the past couple weeks as well as 20 pound weight loss over 3 to 4 months. Endorses reduced appetite due to nausea however endorses good appetite today. Patient denies any personal or family history of cancer, however of note upon chart review patient was noted to have pulmonary nodules on imaging, never followed up. Will repeat imaging today. Ordered FOBT. Consulted dietitian and physical therapy due to malnutrition and generalized weakness. Will continue all other home medications. Exam Vital Signs Temp Pulse Resp BP Pulse Ox O2 Del Method 97.2 F 73 17 139/66 H 96 Room Air 01/15/25 07:31 01/15/25 09:37 01/15/25 07:31 01/15/25 09:37 01/15/25 07:31 01/15/25 07:31 Narrative Exam Physical Exam General: Awake and in no acute distress. Conversational and non-toxic appearing. Elderly cachetic Montenegrin-speaking woman. HEENT: Normocephalic, atraumatic, mucous membranes moist. Heart: Regular rate and rhythm, normal S1 and S2, no murmurs. Lungs: Clear to auscultation with no wheezing or crackles. Abdomen: Soft, nondistended, nontender, positive bowel sounds. No guarding or rebound tenderness. Neurologic: Alert and oriented x3, no gross neurological deficit, and patient able to move all 4 extremities. 5/5 strength in all extremities. Sensation intact. Extremities: No edema. Skin: No rash or ecchymoses. Objective Labs 01/15/25 00:10 01/15/25 05:51 Labs: Laboratory Results - last 24 hr 01/14/25 01/14/25 01/15/25 15:33 19:40 00:10 WBC 9.3 11.1 H RBC 3.74 L 3.93 L Hgb 9.9 L 10.6 L Hct 30.6 L 32.1 L MCV 82 82 MCH 26.5 27.0 MCHC 32.4 33.0 RDW Std Deviation 40.1 39.6 Plt Count 247 263 Neut % (Auto) 76 84 H Lymph % (Auto) 18 11 [place] % (Auto) 5 5 Eos % (Auto) 1 0 Baso % (Auto) 0 0 Neut # (Auto) 7.0 9.3 H Lymph # (Auto) 1.7 1.2 [place] # (Auto) 0.5 0.5 Eos # (Auto) 0.1 0.0 Baso # (Auto) 0.0 0.0 Immature Gran # (Auto) 0.04 H 0.04 H Absolute Nucleated RBC 0.00 0.00 Immature Gran % 0 0 Nucleated RBC % 0 0 Sodium 139 143 Potassium 3.0 L 3.0 L Chloride 98 100 Carbon Dioxide 27.0 26.3 Anion Gap 14 17 H BUN 9 10 Creatinine 0.8 0.7 Estim Creat Clear Calc 35.6 L 40.7 L eGFR > 60 > 60 BUN/Creatinine Ratio 11 L 14 Glucose [address] Glu mg/dL Hemoglobin A1c Calculated Osmolality 278 285 Lactic Acid Calcium 6.7 L* 7.8 L Corrected Calcium 6.7 L* 7.8 L Phosphorus 3.9 Magnesium 0.6 L* 2.0 Total Bilirubin 0.3 AST 21 ALT 13 Alkaline Phosphatase 77 Total Protein 6.1 Albumin 4.0 4.2 Globulin 2.1 L Albumin/Globulin Ratio 1.9 Triglycerides Cholesterol LDL Cholesterol, Calc HDL Cholesterol Cholesterol/HDL Ratio 25-OH Vitamin D Total Folate 9.06 TSH 2.27 Free T4 1.21 PTH Intact 84.9 Ur Collection Type Clean Catch Urine Color Lt-Yellow Urine Clarity Clear Urine pH 6.5 Ur Specific [place] 1.006 Urine Protein Negative Urine Glucose (UA) Negative Urine Ketones Negative Urine Blood Negative Urine Nitrite Negative Urine Bilirubin Negative Urine Urobilinogen (Auto) Negative Ur Leukocyte Esterase Positive Urine RBC 1 Urine WBC 15 H Ur Squamous Epith Cells 1 Urine Bacteria Rare Ur Culture Indicated? Yes 01/15/25 05:51 WBC RBC Hgb Hct MCV MCH MCHC RDW Std Deviation Plt Count Neut % (Auto) Lymph % (Auto) [place] % (Auto) Eos % (Auto) Baso % (Auto) Neut # (Auto) Lymph # (Auto) [place] # (Auto) Eos # (Auto) Baso # (Auto) Immature Gran # (Auto) Absolute Nucleated RBC Immature Gran % Nucleated RBC % Sodium 145 Potassium 3.5 D Chloride 103 Carbon Dioxide 27.5 Anion Gap 15 BUN 6 L Creatinine 0.8 Estim Creat Clear Calc 35.6 L eGFR > 60 BUN/Creatinine Ratio 8 L Glucose [address] Glu mg/dL 143 H Hemoglobin A1c 6.6 H Calculated Osmolality 290 Lactic Acid 1.4 Calcium 8.9 Corrected Calcium 8.9 Phosphorus 3.5 Magnesium 3.1 H Total Bilirubin 0.4 AST 20 ALT 13 Alkaline Phosphatase 90 Total Protein 6.9 Albumin 4.5 Globulin 2.4 Albumin/Globulin Ratio 1.9 Triglycerides 80 Cholesterol 94 L LDL Cholesterol, Calc 38 HDL Cholesterol 40 Cholesterol/HDL Ratio 2.4 L 25-OH Vitamin D Total 50.0 H Folate TSH Free T4 PTH Intact Ur Collection Type Urine Color Urine Clarity Urine pH Ur Specific [place] Urine Protein Urine Glucose (UA) Urine Ketones Urine Blood Urine Nitrite Urine Bilirubin Urine Urobilinogen (Auto) Ur Leukocyte Esterase Urine RBC Urine WBC Ur Squamous Epith Cells Urine Bacteria Ur Culture Indicated? Quality Measures Quality Measures VTE prophylaxis Advance care planning discussed with:: patient Assessment & Plan Assessment Current Active Medications: Generic Name Dose Route Start Last Admin Trade Name Freq PRN Reason Stop Dose Admin Ascorbic Acid 500 mg 01/15/25 09:00 01/15/25 09:36 Ascorbic Acid 250 Mg Tablet PO 02/14/25 08:59 500 mg QDAY JL Administration Atorvastatin Calcium 40 mg 01/15/25 21:00 Atorvastatin Calcium 20 Mg Tablet PO 02/14/25 20:59 HS JL Clopidogrel Bisulfate 75 mg 01/15/25 09:00 01/15/25 09:37 Clopidogrel Bisulfate 75 Mg Tablet PO 02/14/25 08:59 75 mg QDAY JL Administration Diphenhydramine HCl 25 mg 01/14/25 23:47 Diphenhydramine Inj 50 Mg/Ml Vial IVP 02/13/25 23:46 Q4HR PRN Itching and nausea Heparin Sodium (Porcine) 5,000 unit 01/15/25 09:00 01/15/25 09:37 Heparin Sod Inj 5000 Unit/Ml Vial SC 01/29/25 08:59 5,000 unit BID JL Administration Hydrochlorothiazide 12.5 mg 01/15/25 09:00 01/15/25 09:36 Hydrochlorothiazide 12.5 Mg Capsule PO 02/14/25 08:59 12.5 mg QDAY JL Administration Dextrose/Sodium Chloride 1,000 mls @ 75 mls/hr 01/15/25 04:17 D5-Ns IV 01/15/25 17:36 .[id number] JL Sodium Chloride 250 mls @ 999 mls/hr 01/15/25 10:23 Ns IV 01/15/25 10:38 .Q16M ONE Losartan Potassium 50 mg 01/15/25 09:00 01/15/25 09:37 Losartan Potassium 25 Mg Tablet PO 02/14/25 08:59 50 mg QDAY JL Administration Oxybutynin Chloride 5 mg 01/15/25 09:00 01/15/25 09:36 Oxybutynin Chlor 5 Mg Tablet PO 02/14/25 08:59 5 mg QDAY JL Administration Pantoprazole Sodium 40 mg 01/15/25 09:00 01/15/25 09:37 Pantoprazole 40 Mg Tablet PO 02/14/25 08:59 40 mg QDAY JL Administration Plan Patient is an 89-year-old female with past medical history of multiple CVAs/TIAs, hypertension, type 2 diabetes [id number], hyperlipidemia, anemia, s/p hysterectomy who presented on 01/14 for weakness, admitted for electrolyte derangements likely secondary to malnutrition. #Malnutrition #Electrolyte abnormalities #Recent weight loss #Right lower lobe pulmonary nodules (03/2023) #Paresthesia of distal extremities Reports that she has been having decreased appetite for the past few weeks due to nausea when eating. Denies any abdominal pain. Lost about 20 pounds over 3-4 months (125-> 105). BMI 17. Concerning for malignancy. Patient denies family and personal history of cancer. Patient has uterus removed due to to having too many children . Per chart review, CT abdomen pelvis on 04/05/2023 shows 4 mm and 6 mm pulmonary nodules in right lower lobe. Recommended CT chest without contrast to exclude pulmonary nodular metastatic disease however was never completed per records. On admission, potassium 3.0, calcium 6.7, magnesium 0.6. Folate and B12 within normal limits. TSH and free T4 within normal limits. PTH intact 84.9. Plan: - Replete electrolytes accordingly - Vitamin C daily - Pending vitamin B1 -Pending cocci serology -Ordered CT chest abdomen pelvis - Follow up FOBT - Consulted silverlight developer #Normocytic anemia Appears to be chronic, baseline 11-12 since 2019. Iron panel shows low iron and low saturation, likely GARRET. Possible ACD in light of weight loss, concerning for malignancy. -Consider starting on outpatient iron supplementation - Workup for possible malignancy #History of CVA/TIA #Hyperlipidemia Per chart review, patient has multiple incidents of TIAs and CVA. MRI 12/2020 showed acute nonhemorrhagic infarcts of the left basal ganglia and left caudate nucleus. No residual neurologic deficits per patient. Takes atorvastatin 20 mg, Plavix 75 mg daily. ASCVD score: unable to calculate as patient age >75 Plan: - Continue home dose atorvastatin and Plavix - CTM new neurologic deficits #Non-insulin dependent type 2 diabetes Takes metformin at home. A1c 6.6. - CTM glucose - Hold SSI for now #Hypertension Takes losarta?hydrochlorothiazide tablet daily. -Losartan 50 mg daily -Hydrochlorothiazide 12.5 mg daily -CTM BP #Pyuria UA is positive for leukocyte esterase and WBC 15, rare bacteria. Denies urinary symptoms at this time. -Pending urine culture -Will defer antibiotics at this time Health Maintenance Disposition: med surg DVT prophylaxis: heparin GI prophylaxis: protonix Diet: Carb consistent CODE STATUS: FULL Patient plan of care was discussed with the attending physician, Dr. Rolon. Dee Shah, PGY-1 Attending Provider Attestation/Addendum I have discussed and was present for the essential components of the history, physical examination, diagnosis, and treatment plan with the resident. I agree with the patient's care as documented by the resident and amended herein by me. Pietro Rolon DO. Although this document has been carefully reviewed, there may still be some phonetic and other typographical errors. These errors are purely grammatical due to imperfections in the software program and should not be construed in any way to compromise the substance of the patient's medical care during this visit.
[2025-01-15 10:54] LABS: Iron 16 mcg/dL (50-170); Percent Iron Saturation 5 % (20-55); Total Iron Binding Capacity 290 mcg/dL (250-425); Unsaturated Iron Binding 274 (225-295)
--- NOTE | 2025-01-15 11:11 | PC.SS ---
SS follow up note; Patient is pending PT Eval. Patient will discharge home when medically cleared.
[2025-01-15 11:47] LABS: Vitamin B12 787 pg/mL (211-911)
[2025-01-15] MEDS: SODIUM CHLORIDE 0.9% 250 ML 250 ML 999 ML IV (12:51)
--- NOTE | 2025-01-15 13:46 | PC.NURSE ---
Educated patient and family patient is a 3 star. Patient has to call for assistance or family has to take her to the restroom. I put bed alarm on before leaving the room.
--- NOTE | 2025-01-15 15:05 | PC.SS ---
SS follow up note; Patient is pending Cultures. Patient will discharge home when medically cleared.
--- NOTE | 2025-01-15 16:10 | PC.PT ---
Patient was approached for PT eval at 15:07. Patient had left for CT. Will defer PT evaluation to another time. RN made aware.
[2025-01-15 20:03] LABS: OBS Card Expiration Date 2026-09; OBS Card Lot # 23001; OBS Developer Lot # 23003; OBS Performed By RANGP2; OBS QC OK? Yes; Occult Blood, Stool Negative (Negative)
[2025-01-15] MEDS: ATORVASTATIN CALCIUM 20 MG TABLET 40 MG PO (20:46)
[2025-01-16] VITALS: BP 151/70; PULSE 65; RESP 18; TEMP 36.9; O2SAT 98
[2025-01-16 04:00] VITALS: BP 139/71; RESP 16; TEMP 36.4; O2SAT 98
[2025-01-16 06:54] LABS: Alanine Aminotransferase < 7 U/L (10-49); Albumin, Serum 3.8 gm/dL (3.4-4.8); Albumin/Globulin Ratio 1.8 (1.2-2.2); Alkaline Phosphatase 74 U/L (46-116); Anion Gap 9 (7-16); Aspartate Amino Transferase 20 U/L (0-34); BUN/Creatinine Ratio 10 Ratio (12-20); Bilirubin,Total 0.3 mg/dL (0.3-1.2); Blood Urea Nitrogen 7 mg/dL (9-23); Calcium 8.6 mg/dL (8.3-10.6); Calcium (Corrected) 8.8 mg/dL (8.5-10.1); Carbon Dioxide 25.0 mMol/L (20.0-31.0); Chloride 104 mMol/L (98-107); Creatinine (Component) 0.7 mg/dL (0.6-1.3); Estimated Creatinine Clearance 44.1 mL/min (>60); Globulin 2.1 gm/dL (2.3-3.5); Glucose 130 mg/dL (74-106); Magnesium 2.2 mg/dL (1.6-2.6); Osmolality,Calculated 275 (275-295); Phosphorous 2.6 mg/dL (2.4-5.1); Potassium 4.1 mMol/L (3.4-5.1); Sodium 138 mMol/L (136-145); Total Protein 5.9 gm/dL (5.7-8.2); eGFR > 60 See Note
[2025-01-16 08:00] VITALS: BP 138/56; PULSE 60; RESP 18; TEMP 36.4; O2SAT 95
[2025-01-16 08:25] VITALS: BP 138/56; PULSE 60
[2025-01-16] MEDS: ASCORBIC ACID 250 MG TABLET 500 MG PO (08:25)
[2025-01-16 08:26] VITALS: BP 138/56; PULSE 60
[2025-01-16] MEDS: PANTOPRAZOLE 40 MG TABLET PO (08:26)
[2025-01-16] MEDS: HEPARIN SOD INJ 5000 UNIT/ML VIAL SC (08:26)
[2025-01-16] MEDS: OXYBUTYNIN CHLOR 5 MG TABLET PO (08:26)
[2025-01-16] MEDS: LOSARTAN POTASSIUM 25 MG TABLET 50 MG PO (08:26)
[2025-01-16] MEDS: CLOPIDOGREL BISULFATE 75 MG TABLET PO (08:26)
[2025-01-16 11:40] VITALS: BMI 14.0
--- NOTE | 2025-01-16 11:58 | ESDS_ITS ---
Planned Discharge Date 01/16/25 DS: Providers Provider Date of admission: 01/14/25 23:44 Primary care physician: Physician No Primary/Family Admitting Provider: Rosa Jarrett MD Attending Provider on Admission: Sawyer Rolon DO Consults: 01/15/25 12:39 Referral Registered Dietitian Routine Comment: 01/15/25 12:58 Referral Physical Therapy Routine Comment: Physician Instructions: Attending Provider on DC: Noam Guerra MD Discharging Provider: Noam Guerra MD DS: Diagnosis Problem List Completed Was Problem List Reviewed/Reconciled?: Yes Hospital Course Hospital Course Hospital course: 89-year-old female with past medical history of multiple CVA/TIA, hypertension, diabetes presented to the ED on 01/14 with episode of weakness. Per patient and family patient's been feeling generalized weakness for the past 2 weeks and has experienced unintentional weight close for the past 2 to 3 months, about 34 pounds in total. Patient has also been: Increasingly forgetful per patient's family. In the ED, patient was mildly hypertensive but rest of vitals were stable, pertinent lab findings included WBC 11.9, hemoglobin of 10.6, EKG showed sinus rhythm patient's electrolytes were severely depleted including potassium, calcium and magnesium which were all repleted. Patient was admitted for failure to thrive secondary to electrolyte abnormalities and chronic conditions. There was some concern regarding patient's normocytic anemia and possible development of malignancy due to recent weight loss as such, CT scan of abdomen pelvis along with chest was ordered. Patient had in the past history of pulmonary nodule seen on CT but there was no follow-up CT on EMR. CT scan findings show thyroid nodules along with subcentimeter pulmonary nodules which will need close follow- up outpatient. Patient symptomatically improved and will be discharged following strict instructions. Please take iron tablets every other day for iron deficiency anemia Please follow-up with your PCP within 1 week of discharge or follow-up [facility] [address] [place] [address] Please follow-up on thyroid nodule seen incidentally on CT and repeat CT Chest for subcentimeter pulmonary nodules Stop taking meloxicam and metformin Continue all other home medications as prescribed If your symptoms worsen or if you develop new chest pain, shortness of breath, dizziness or loss of conscioussness - please come back to the ED immediately Hospital Diagnosis: #Failure to thrive, malnutrition #Electrolyte abnormalities #Recent weight loss #Right lower lobe pulmonary nodules (03/2023) #Paresthesia of distal extremities #Iron deficiency anemia #History of CVA/TIA #Hyperlipidemia #Non-insulin dependent type 2 diabetes #Hypertension #Pyuria Noam Guerra DO PGY-2 Internal Medicine - [facility] Status at Discharge Overall status at discharge: patient is progressing back to baseline Time Spent with Patient Time attestation: Total time spent providing and/or coordinating discharge services: 45 minutes Time spent: Greater than 30 minutes Exam Vital Signs Temp Pulse Resp BP Pulse Ox O2 Del Method 97.5 F 60 18 138/56 H 95 Room Air 01/16/25 08:00 01/16/25 08:26 01/16/25 08:00 01/16/25 08:01/16/25 08:00 01/16/25 08:00 Narrative Exam Physical Exam General: Awake and in no acute distress. Conversational and non-toxic appearing. Elderly cachetic Syrian-speaking woman. HEENT: Normocephalic, atraumatic, mucous membranes moist. Heart: Regular rate and rhythm, normal S1 and S2, no murmurs. Lungs: Clear to auscultation with no wheezing or crackles. Abdomen: Soft, nondistended, nontender, positive bowel sounds. No guarding or rebound tenderness. Neurologic: Alert and oriented x3, no gross neurological deficit, and patient able to move all 4 extremities. 5/5 strength in all extremities. Sensation intact. Extremities: No edema. Skin: No rash or ecchymoses. Discharge Plan Plan Patient Disposition: HOME (Self Care) Care Plan Goals: Please take iron tablets every other day for iron deficiency anemia Please follow-up with your PCP within 1 week of discharge or follow-up [facility] [address] [place] [address] Please follow-up on thyroid nodule seen incidentally on CT and repeat CT Chest for subcentimeter pulmonary nodules Stop taking meloxicam and metformin Continue all other home medications as prescribed If your symptoms worsen or if you develop new chest pain, shortness of breath, dizziness or loss of conscioussness - please come back to the ED immediately Prescriptions/Referrals Prescriptions/Med Rec: New ferrous sulfate 325 mg (65 mg iron) tablet 325 mg PO Q OTHER DAY 30 Days Qty: 15 0RF Continued clopidogrel [Plavix] 75 mg tablet 75 mg PO QDAY Qty: 14 0RF losartan-hydrochlorothiazide 50-12.5 mg Tablet 1 tab PO QDAY oxybutynin chloride 5 mg Tablet 5 mg PO QDAY [id number] Tablet 1 tab PO QDAY cholecalciferol (vitamin D3) [Vitamin D3] 125 mcg (5,000 unit) Tablet 125 mcg PO QDAY atorvastatin 20 mg Tablet 20 mg PO QDAY omeprazole 40 mg Capsule,Delayed Release(Dr/Ec) 40 mg PO QDAY ascorbic acid (vitamin C) [Vitamin C] 500 mg Tablet 500 mg PO QDAY Discontinued metformin 500 mg Tablet 500 mg PO BID meloxicam 7.5 mg tablet 7.5 mg PO QDAY Patient Comments: TOME PATRICIA TABLETA POR V A ORAL TODOS LOS D WITH FOOD FOR ARTHRITIS potassium chloride 10 mEq Capsule, Extended Release 10 meq PO BID meloxicam 7.5 mg tablet 7.5 mg PO QDAY Qty: 4 0RF Referrals: No Primary/Family,Physician [Primary Care Provider] Patient/Caregiver Discharge Instructions Education Materials: Anemia, Iron Supplements Print Language: Syrian Stand Alone Forms: Nadine Award Info., Patient Portal Info Letter, Work/Release Restrictions Discharge Order Discharge Orders: Discharge (Routine); Ordered 01/16/25 Ordered By: Noam Guerra Quality Discharge Quality Measures VTE prophylaxis Attestestation MD Attestation I have discussed and was present for the essential components of the discharge history, physical examination, diagnosis, and discharge treatment plan with the resident. I agree with the patient's discharge care as documented by the resident and amended herein by me. Pietro Rolon DO. The patient understood all discharge instructions, all questions were answered satisfactorily. The patient was instructed to return to the Emergency Department is symptoms worsened or persisted. Patient was stable, afebrile, tolerating p.o. intake and ambulatory at time of discharge. No skilled need necessary at time of discharge, patient will need to follow-up for incidental finding of thyroid and pulmonary nodules, see resident note above for additional details. Although this document has been carefully reviewed, there may still be some phonetic and other typographical errors. These errors are purely grammatical due to imperfections in the software program and should not be construed in any way to compromise the substance of the patient's medical care during this visit.
[2025-01-16 12:00] VITALS: BP 136/77; PULSE 60; RESP 18; TEMP 36.4; O2SAT 96
[2025-01-16 15:03] LABS: Cocci Serology, IgM Negative (Negative)
[2025-01-18 14:49] LABS: Cocci Serology, IgG Negative (Negative)
[2025-01-21 14:06] LABS: Vitamin B1 (Thiamine)* 15 nmol/L (8-30)
== END 2025-01-16 14:10 | disposition home or self-care (01) ==
LOC: SERX 16:30 → SERHOLD 01-15 00:13 → S3SX 01-15 03:22
PROVIDERS: Nurse Practitioner Primary Care; Admitting Provider Student in an Organized Health Care Education/Training Program; Emergency Provider Emergency Medicine; Visit Provider Student in an Organized Health Care Education/Training Program
DX: E87.8 Other disorders of electrolyte and fluid balance, not elsewhere classified (principal); R62.7 Adult failure to thrive; R91.8 Other nonspecific abnormal finding of lung field; E11.9 Type 2 diabetes mellitus without complications; D50.9 Iron deficiency anemia, unspecified; E78.5 Hyperlipidemia, unspecified; Z86.73 Personal history of transient ischemic attack (TIA), and cerebral infarction without residual deficits; I10 Essential (primary) hypertension; E20.9 Hypoparathyroidism, unspecified; R82.81 Pyuria
CPT/HCPCS: 36415; 71270; 74178; 80053; 80061; 80069; 81001; 82270; 82306; 82607; 82746; 83036; 83540; 83550; 83605; 83735; 83970; 84100; 84132; 84425; 84439; 84443; 85025; 86331; 86635; 87086; 93005; 96365; 96366; 96372; 97161; 99284; A4649; G0378; J0612; J1644; J1815; J3475; J7050; Q9967; A9270

== ENCOUNTER → 2025-01-22 | Outpatient (CLI) | payer MEDICARE, MEDICAID, SELFPAY ==
[2025-01-22 12:53] LABS: Basophils # (Auto) 0.0 Thou/mm3 (0.0-0.2); Basophils % (Auto) 0 % (0-2.5); Eosinophils # (Auto) 0.1 Thou/mm3 (0.0-0.5); Eosinophils % (Auto) 2 % (0-10); Hematocrit 30.3 % (36.0-46.0); Hemoglobin 9.5 g/dL (12.0-16.0); Immature Granulocytes Auto 0.06 Thou/mm3 (0.00-0.00); Lymphocytes # (Auto) 2.1 Thou/mm3 (1.0-4.8); Lymphocytes % (Auto) 32 % (10-50); Mean Corpuscular HGB Conc 31.4 g/dl (31.0-37.0); Mean Corpuscular Hemoglobin 26.7 pg (25.0-35.0); Mean Corpuscular Volume 85 fL (80-100); Monocytes # (Auto) 0.6 Thou/mm3 (0.0-0.8); Monocytes % (Auto) 9 % (0-12); Neutrophils # (Auto) 3.9 Thou/mm3 (1.8-7.7); Neutrophils % (Auto) 57 % (37-80); Nucleated Red Blood Cell # 0.00 Thou/mm3 (0.00-0.00); Nucleated Red Blood Cell % 0 /100 WBC (0); Platelet Count 283 Thou/mm3 (140-440); RDW Standard Deviation 42.6 fL (36.4-46.3); Red Blood Count 3.56 Miln/mm3 (4.00-5.20); White Blood Count 6.8 Thou/mm3 (3.6-11.0)
[2025-01-22 13:01] LABS: Alanine Aminotransferase 16 U/L (10-49); Albumin, Serum 4.3 gm/dL (3.4-4.8); Albumin/Globulin Ratio 2.0 (1.2-2.2); Alkaline Phosphatase 79 U/L (46-116); Anion Gap 7 (7-16); Aspartate Amino Transferase 28 U/L (0-34); BUN/Creatinine Ratio 18 Ratio (12-20); Bilirubin,Total 0.2 mg/dL (0.3-1.2); Blood Urea Nitrogen 14 mg/dL (9-23); Calcium 9.3 mg/dL (8.3-10.6); Calcium (Corrected) 9.3 mg/dL (8.5-10.1); Carbon Dioxide 30.0 mMol/L (20.0-31.0); Chloride 102 mMol/L (98-107); Creatinine (Component) 0.8 mg/dL (0.6-1.3); Globulin 2.2 gm/dL (2.3-3.5); Glucose 124 mg/dL (74-106); Magnesium 1.4 mg/dL (1.6-2.6); Osmolality,Calculated 279 (275-295); Potassium 4.8 mMol/L (3.4-5.1); Sodium 139 mMol/L (136-145); Total Protein 6.5 gm/dL (5.7-8.2); eGFR > 60 See Note
[2025-01-22 13:03] LABS: Ferritin 18 ng/mL (7.3-270.7); Iron 36 mcg/dL (50-170); Percent Iron Saturation 11 % (20-55); Total Iron Binding Capacity 308 mcg/dL (250-425); Unsaturated Iron Binding 272 (225-295)
== END | disposition home or self-care (01) ==
LOC: COPL 11:08
PROVIDERS: PCP Student in an Organized Health Care Education/Training Program; Referring Provider Student in an Organized Health Care Education/Training Program; Visit Provider Student in an Organized Health Care Education/Training Program
DX: E87.8 Other disorders of electrolyte and fluid balance, not elsewhere classified (principal); I10 Essential (primary) hypertension
CPT/HCPCS: 36415; 80053; 82728; 83540; 83550; 83735; 85025

== ENCOUNTER → 2025-03-31 | Outpatient (CLI) | payer MEDICARE, MEDICAID, SELFPAY ==
[2025-03-31 13:20] LABS: Basophils # (Auto) 0.0 Thou/mm3 (0.0-0.2); Basophils % (Auto) 0 % (0-2.5); Eosinophils # (Auto) 0.1 Thou/mm3 (0.0-0.5); Eosinophils % (Auto) 1 % (0-10); Hematocrit 31.8 % (36.0-46.0); Hemoglobin 10.0 g/dL (12.0-16.0); Immature Granulocytes Auto 0.00 Thou/mm3 (0.00-0.00); Lymphocytes # (Auto) 2.0 Thou/mm3 (1.0-4.8); Lymphocytes % (Auto) 39 % (10-50); Mean Corpuscular HGB Conc 31.4 g/dl (31.0-37.0); Mean Corpuscular Hemoglobin 26.2 pg (25.0-35.0); Mean Corpuscular Volume 84 fL (80-100); Monocytes # (Auto) 0.4 Thou/mm3 (0.0-0.8); Monocytes % (Auto) 8 % (0-12); Neutrophils # (Auto) 2.7 Thou/mm3 (1.8-7.7); Neutrophils % (Auto) 52 % (37-80); Nucleated Red Blood Cell # 0.00 Thou/mm3 (0.00-0.00); Nucleated Red Blood Cell % 0 /100 WBC (0); Platelet Count 208 Thou/mm3 (140-440); RDW Standard Deviation 39.7 fL (36.4-46.3); Red Blood Count 3.81 Miln/mm3 (4.00-5.20); White Blood Count 5.2 Thou/mm3 (3.6-11.0)
[2025-03-31 13:34] LABS: Ferritin 5 ng/mL (7.3-270.7); Iron 23 mcg/dL (50-170); Percent Iron Saturation 5 % (20-55); Total Iron Binding Capacity 404 mcg/dL (250-425); Unsaturated Iron Binding 381 (225-295)
[2025-03-31 13:41] LABS: Alanine Aminotransferase 30 U/L (10-49); Albumin, Serum 5.0 gm/dL (3.4-4.8); Albumin/Globulin Ratio 1.9 (1.2-2.2); Alkaline Phosphatase 112 U/L (46-116); Anion Gap 10 (7-16); Aspartate Amino Transferase 45 U/L (0-34); BUN/Creatinine Ratio 22 Ratio (12-20); Bilirubin,Total 0.3 mg/dL (0.3-1.2); Blood Urea Nitrogen 20 mg/dL (9-23); Calcium 9.7 mg/dL (8.3-10.6); Calcium (Corrected) 9.7 mg/dL (8.5-10.1); Carbon Dioxide 27.7 mMol/L (20.0-31.0); Chloride 101 mMol/L (98-107); Creatinine (Component) 0.9 mg/dL (0.6-1.3); Free T4 (Free Thyroxine) 1.27 ng/dL (0.89-1.76); Globulin 2.6 gm/dL (2.3-3.5); Glucose 120 mg/dL (74-106); Magnesium 1.7 mg/dL (1.6-2.6); Osmolality,Calculated 281 (275-295); Potassium 4.4 mMol/L (3.4-5.1); Sodium 139 mMol/L (136-145); Thyroid Stimulating Hormone 2.75 uIU/mL (0.55-4.78); Total Protein 7.6 gm/dL (5.7-8.2); eGFR > 60 See Note
== END | disposition home or self-care (01) ==
LOC: COPL 11:42
PROVIDERS: PCP Student in an Organized Health Care Education/Training Program; Referring Provider Student in an Organized Health Care Education/Training Program; Visit Provider Student in an Organized Health Care Education/Training Program
DX: E04.2 Nontoxic multinodular goiter (principal); E87.8 Other disorders of electrolyte and fluid balance, not elsewhere classified; I10 Essential (primary) hypertension; E11.9 Type 2 diabetes mellitus without complications
CPT/HCPCS: 36415; 80053; 82728; 83540; 83550; 83735; 84439; 84443; 85025

== ENCOUNTER 2025-04-07 14:57 | Emergency (ER) | payer MEDICARE, MEDICAID, SELFPAY ==
[2025-04-07 15:17] VITALS: BP 178/61; PULSE 74; RESP 18; TEMP 36.7; O2SAT 99; BMI 19.9
--- NOTE | 2025-04-07 15:33 | XR_ITS ---
Examination: CT chest, without intravenous contrast. Sagittal and coronal 2-D reconstructions. Exam date and time: April 07, 2025, 1406 hours INDICATIONS: Patient fell today with injury to the chest, left-sided chest pain CTDI:vol (mGy) 7.95 DLP: (mGycm) 251 Technique: Multiple 3.0 mm axial sections of the chest to been obtained. Bone and lung density settings are obtained. Sagittal and coronal 2-D reconstructions have been obtained. Low dose protocols were performed. One or more of the following dose reduction techniques were used; automated exposure control, adjustment of the mA and/or KV according to patient size, use of iterative reconstruction technique. Findings: Thoracic aorta pulmonary arteries intact Significant calcification left main and left anterior descending right coronary artery Trace pericardial effusion No pneumothorax pulmonary contusion or hemothorax The manubrium and the body of the sternum intact No thoracic or lumbar vertebral body compression fractures Ribs appear intact No visualized liver or splenic or renal laceration Gallstones No pancreatic mass IMPRESSION: Thoracic aorta pulmonary arteries intact No pneumothorax pulmonary contusion or hemothorax Visualized osseous structures including left ribs appear intact
--- NOTE | 2025-04-07 15:33 | XR_ITS ---
Examination: CT cervical spine without contrast 2-D sagittal reconstructions 2-D coronal reconstructions 3-D reconstructions. Exam date and time: April 07, 2025, 1757 hours INDICATIONS: Patient fell today with injury to the neck, neck pain CTDI:vol (mGy) 11.8 DLP: (mGycm) 241 Technique: Multiple 2 mm axial sections of the cervical spine have been obtained. The coronal and sagittal reconstructions have been obtained. 3-D reconstructions have been obtained. Low dose protocols were performed. One or more of the following dose reduction techniques were used; automated exposure control, adjustment of the mA and/or KV according to patient size, use of iterative reconstruction technique. Findings: Axial sections demonstrate intact base of the skull. C1 exhibit satisfactory relationship to the odontoid. No acute cervical vertebral body fracture seen. Alignment posterior spinous processes satisfactory. Impression: No acute cervical fracture.
--- NOTE | 2025-04-07 15:33 | XR_ITS ---
Examination: CT maxillofacial, without intravenous contrast. 2-D sagittal reconstructions. 3-D reconstructions. Date and time of exam: April 07, 2025, 1557 hours INDICATIONS: Patient fell today with injury of the face, left-sided facial pain CTDI: vol (mGy): 15.5 DLP: (mGycm): 284 Technique: Multiple axial images of maxillofacial region, 3.0 mm slice thickness. 2-D sagittal and coronal reconstructions. 3-D reconstructions. Low dose protocols were performed. One or more of the following dose reduction techniques were used; automated exposure control, adjustment of the mA and/or KV according to patient size, use of iterative reconstruction technique. Findings: Frontal bone frontal sinuses intact Orbital rims intact No nasal bone fracture No depression zygomatic arches Pterygoid plates maxilla and the mandible appear intact IMPRESSION: No acute facial fracture.
--- NOTE | 2025-04-07 15:33 | XR_ITS ---
Examination: CT brain head without contrast. 2-D sagittal coronal reconstructions Date and time of exam: April 07, 2025, 1557 hours INDICATIONS: Left-sided headache and facial pain after fall today CTDI: vol (mGy): 43.8 DLP: (mGycm): 839 Technique: Multiple CT axial sections of the brain have been obtained, 5 mm slice thickness. Contrast has not been administered. 2-D sagittal, coronal reconstructions have been obtained Low dose protocols were performed. One or more of the following dose reduction techniques were used; automated exposure control, adjustment of the mA and/or KV according to patient size, use of iterative reconstruction technique. Findings: No significant ventricular enlargement. Stable old infarct left occipital lobe compared with December 15, 2023 Intra-axial or extra-axial hemorrhage density is not seen. No mass effect or midline shift Basal cisterns are not remarkable. Fourth ventricle is midline. Cranial vault intact. Impression: Negative for acute hemorrhage, mass effect or midline shift
--- NOTE | 2025-04-07 17:48 | EDNOTE_ITS ---
<Statement entered by Margarita Gallardo MD - 04/22/25 06:47> As co-signing physician, I was present and available for consult prn. I concur with the plan and care as documented by the midlevel provider. ED Head Injury RME/HPI General Chief complaint: Head Injury Stated complaint: FALL SATURDAY, HEADACHE, BRUISED FACE ON BLOOD THINN Time Seen by Provider: 04/07/25 16:40 Arrival date/time: 04/07/25 14:57 89-year-old female currently on blood thinners presents to the emergency department today stating that she had a ground-level fall after tripping on Saturday patient's daughter brought her in as she has bruising to her face and wanted to make sure she is okay Limitations: no limitations Related Data Home Medications ?Medication ?Instructions ?Recorded ?Confirmed ascorbic acid (vitamin C) 500 mg 500 mg PO QDAY 01/15/25 tablet (Vitamin C) atorvastatin 20 mg tablet 20 mg PO QDAY 07/30/2301/15 cholecalciferol (vitamin D3) 125 125 mcg PO QDAY 07/2901/15/25 mcg (5,000 unit) tablet (Vitamin D3) losartan 50 mg-hydrochlorothiazide 1 tab PO QDAY 07/2901/15/25 12.5 mg tablet [id number]-[id number] tablet 1 tab PO QDAY 01/1301/15/25 omeprazole 40 mg capsule,delayed 40 mg PO QDAY 4 01/15/25 release oxybutynin chloride 5 mg tablet 5 mg PO QDAY 07/30/23 01/15/25 Previous Rx's ?Medication ?Instructions ?Recorded clopidogrel 75 mg tablet (Plavix) 75 mg PO QDAY #14 ta bs 06/28/20 Allergies Allergy/AdvReac Type Severity Reaction Status Date / Time Penicillins Allergy Intermediate Rash Verified 04/07/25 15:01 Review of Systems Review of Systems Systems Reviewed: All systems reviewed, normal except as documented Constitutional Constitutional: Reports system reviewed and no additional complaints, except as documented, Denies fever(s) and Denies headache(s) Eyes Eyes: Reports system reviewed and no additional complaints, except as documented and Denies blurry vision ENT Ears, Nose, Mouth, and Throat: Reports system reviewed and no additional complaints, except as documented, Denies headache(s), Denies nasal congestion and Denies nasal discharge Cardiovascular Cardiovascular: Reports system reviewed and no additional complaints, except as documented, Denies chest pain and Denies dyspnea Respiratory Respiratory: Reports system reviewed and no additional complaints, except as documented, Denies chest congestion, Denies cough and Denies dyspnea Gastrointestinal Gastrointestinal: Reports system reviewed and no additional complaints, except as documented and Denies abdominal pain Integumentary/Breasts Skin/Breast: Reports system reviewed and no additional complaints, except as documented and Denies rash Neurologic Neurologic: Reports system reviewed and no additional complaints, except as documented, Reports as per HPI and Denies headache(s) Past Medical History Past Medical History NEUROLOGIC: Positive Neurological Disorders, Cerebrovascular Accident and Transient Ischemic Attacks (TIA); Negative Seizures CARDIAC: Positive Hypertension; Negative Cardiac Disorders or Congestive Heart Failure RESPIRATORY: Negative Chronic Obstructive Pulmonary Disease (COPD) or Asthma GASTROINTESTINAL: Negative Gastrointestinal Disorders GENITOURINARY: Negative Genitourinary Disorders or Renal Disease MUSCULOSKELETAL: Positive Musculoskeletal Disorders and Arthritis ENT: Positive Cataracts ENDOCRINE: Positive Endocrine Disorders and Diabetes Mellitus Type 2; Negative Diabetes Mellitus Type 1 HEMATOLOGIC: Positive Blood Disorders and Anemia; Negative Sickle Cell Disease OTHER HISTORY: Negative Autoimmune Disease, Blood Transfusions or Anesthesia Reactions Family History FAMILY HISTORY: Negative Family Psychiatric Problems, Family Respiratory Disorders, Family Cardiac Disorders, Family Gastrointestinal Problems, Family Cancer, Family Surgery or Family Anesthesia Reaction Surgical History SURGICAL: Positive Hysterectomy Social History SMOKING STATUS: Never smoker SUBSTANCE USE: does not use ED Exam General Limitations: Present no limitations General appearance: Present alert and in no apparent distress Expanded Head Exam Head exam physical: Present other (Bruising to face and scalp); Absent contusion, hematoma, raccoon eyes, Canales's sign, tenderness of temporal artery or CSF rhinorrhea Eye Eye exam: Present normal appearance, PERRL and EOMI ENT ENT exam: Present normal exam, normal oropharynx and mucous membranes moist Neck Neck exam: Present normal inspection, full ROM and trachea midline Chest Chest inspection: Present normal inspection and symmetric chest wall rise Respiratory Respiratory exam: Present normal lung sounds bilaterally Cardiovascular Cardiovascular exam: Present regular rate, normal rhythm and normal heart sounds Abdominal Exam Abdominal exam: Present soft and normal bowel sounds Extremities Exam Extremities exam: Present normal inspection and full ROM Back Exam Back exam: Present normal inspection and full ROM Neurological Exam Neurological exam: Present alert, oriented X3, CN II-XII intact, normal gait and other Psychiatric Psychiatric exam: Present normal affect and normal mood Skin Skin exam: Present warm, dry and other (Bruising to face and scalp) Course Quality Measures none Orders Category Date Time Status CT cervical spine wo con Stat Exams 04/07/25 15:[address] chest wo con Stat Exams 04/07/25 15:[address] facial bones wo con Stat Exams 04/07/25 15:[address] head/brain wo con Stat Exams 04/07/25 15:33 Completed Vital Signs Vital signs: Vital Signs Temperature 98.1 F 04/07/25 15:17 Pulse Rate 74 04/07/25 15:17 Respiratory Rate 18 04/07/25 15:17 Blood Pressure 178/61 H 04/07/25 15:17 Pulse Oximetry (%) 99 04/07/25 15:17 Oxygen Delivery Method Room Air 04/07/25 15:17 O2 saturation at 9% room air within normal limits Head Injury MDM Narrative MDM Narrative:: 89-year-old female currently on blood thinners presents to the emergency department today stating that she had a ground-level fall after tripping on Saturday patient's daughter brought her in as she has bruising to her face and wanted to make sure she is okay On exam patient well-appearing does not appear look toxic patient walks with steady gait has no abnormal neurological findings Patient reports no chest pain or shortness of breath Patient does have his bruising to her face and scalp Imaging of the head face and neck obtained no acute emergent findings noted no acute fractures noted no acute intracranial hemorrhage. CT scan of the chest obtained as the patient is complaining of rib pain CT scan of the chest does not show any acute abnormality Patient daughter thankful for the care patient walked out with a steady gait Patient discharged home in no distress to follow-up with primary care doctor in the next 24 to 48 hours and for any worsening symptoms to return to the ER im mediately Patient data External records reviewed:: [facility] previous records Clinical information provided by:: patient Social determinants that could affect healthcare access:: none Patient has the following chronic illnesses:: See history How is presenting disease/condition affected by chronic disease/condition?: exacerbated by Evaluation data The following diagnostics were reviewed and interpreted by me:: radiology exam(s) Lab and/or radiology exams considered but not ordered:: Radiology obtained Interpretation Summary: Reviewed by me Medications / Prescriptions Medications or Prescriptions considered but not ordered:: Given no meds Medication administrations:: No meds Consultations Consultation(s) initiated? (list below): No Diagnosis Differential diagnosis head injury: concussion without loss of consciousness, subdural hematoma and concussion with loss of consciousness Most likely diagnosis given after review of the tests above:: Closed head injury Admission Indicated Admission indicated?: not indicated Admission Request Was there a request for admission?: No Disposition Plan Disposition Plan: Discharge Discharge Attestation Discharge Attestation: The patient and all family members were given an opportunity to ask questions and understood the discharge instructions. Discharge instructions specifically effects, indications for sooner follow up or return to the emergency department, and the expected course of current diagnosis. Patient condition: Stable Discharge Plan Plan Patient Disposition: HOME (Self Care) Discharge Disposition comment: Stable Prescriptions/Referrals Prescriptions/Med Rec: No Action clopidogrel [Plavix] 75 mg tablet 75 mg PO QDAY Qty: 14 0RF losartan-hydrochlorothiazide 50-12.5 mg Tablet 1 tab PO QDAY oxybutynin chloride 5 mg Tablet 5 mg PO QDAY [id number]-[id number]-[id number] Tablet 1 tab PO QDAY cholecalciferol (vitamin D3) [Vitamin D3] 125 mcg (5,000 unit) Tablet 125 mcg PO QDAY atorvastatin 20 mg Tablet 20 mg PO QDAY omeprazole 40 mg Capsule,Delayed Release(Dr/Ec) 40 mg PO QDAY ascorbic acid (vitamin C) [Vitamin C] 500 mg Tablet 500 mg PO QDAY Referrals: No Primary/Family,Physician [Primary Care Provider] - In 1 week Problem List Clinical Impression: CHI (closed head injury), Fall Patient/Caregiver Discharge Instructions Additional Instructions: Please follow up with your primary care doctor in the next 24-48hrs for any worsening symptoms return here immediately Print Language: Tajik Stand Alone Forms: Nadine Award Info., Patient Portal Info 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 gallardo
== END 2025-04-07 17:52 | disposition home or self-care (01) ==
PROVIDERS: Emergency Provider Emergency Medicine
DX: S00.83XA Contusion of other part of head, initial encounter (principal); S00.03XA Contusion of scalp, initial encounter; S19.9XXA Unspecified injury of neck, initial encounter; S29.9XXA Unspecified injury of thorax, initial encounter; W01.0XXA Fall on same level from slipping, tripping and stumbling without subsequent striking against object, initial encounter
CPT/HCPCS: 70450; 70486; 71250; 72125; 99282